=== PATIENT | male | born 2000 | race African-American/Black ===

== ENCOUNTER 2023-02-28 02:15 | Inpatient (IN) | payer SELFPAY ==
[2023-02-28] MEDS ORDERED: Rocuronium Bromide 10 MG/ML (10ML VIAL) ONE (02:22)
[2023-02-28 02:38] LABS: Actual Bicarbonate (HCO3a) 17.9 mEq/L (22-28); Analyzer IN Cardio ER; Base Excess (BEa) -7.9 mEq/L (-2.0 to +3.0); CO2 Tension 37.7 mmHg (35.0-45.0); Calcium, Ionized (arterial) 1.11 mmol/L (1.12-1.30); Carboxyhemoglobin (COHb) 0.5 gm% (0.0-3.0); Hematocrit-ABG 44 % (42.0-52.0); Hemoglobin (Hb) 14.9 g/dL (14.0-18.0); O2 Tension (PaO2), arterial 537.5 mmHg (> 60.0); Potassium - ABG Lab 3.74 mmol/L (3.70-5.30); pH, Arterial 7.294 (7.35-7.45)
[2023-02-28 02:40] LABS: #Monocytes 0.3 thou/uL (0.11-0.59); #Neutrophils 5.4 thou/uL (1.40-6.50); %Basophils 0.4 % (0.0-1.0); %Eosinophils 0.3 % (0.0-10.0); %Lymphocytes 27.3 % (21.0-51.0); %Monocytes 3.9 % (0.0-10.0); Hematocrit 41.2 % (42.0-52.0); Hemoglobin 13.8 g/dL (14.0-18.0); Mean Corpuscular HGB CONC 33.5 g/dL (32.0-36.0); Mean Corpuscular Hemoglobin 29.3 pg (27.0-31.0); Mean Corpuscular Volume 87.5 fl (78.0-98.0); Mean Platelet Volume 9.7 fL (7.4-10.4); Platelet Count 181 10x3/uL (130-400); RBC Distribution Width 12.9 % (11.5-14.5); Red Blood Cell (RBC) Count 4.71 mill/uL (4.70-6.10); White Blood Cell (WBC) Count 7.9 10x3/uL (4.8-10.8)
[2023-02-28 02:46] LABS: Puncture Site LR
[2023-02-28 02:51] LABS: ALV-art Gradient 128.375 mmHg (0-20)
[2023-02-28 03:04] LABS: Acetaminophen Less than 10 mcg/mL (10.0-30.0); Alcohol 221.6 mg/dL (Less than 10); Lipase 29 U/L (8-78); Salicylate Less than 8.0 mg/dL (15.0-30.0)
[2023-02-28 03:06] LABS: Troponin I Less than 0.010 ng/mL (< 0.028)
[2023-02-28 03:08] LABS: ALT (SGPT) 18 U/L (8-55); AST (SGOT) 34 U/L (5-34); Albumin 3.9 g/dL (3.4-4.8); Alkaline Phosphatase 90 U/L (40-110); Anion Gap 16 mmol/L (10-20); BUN (Urea Nitrogen) 16 mg/dL (8.4-25.7); Bilirubin, Total 0.3 mg/dL (0.2-1.2); CK (CPK) 676 U/L (30-200); Calc. Creatinine Clearance 0 mL/min (70-130); Carbon Dioxide 17 mmol/L (23-31); Chloride 112 mmol/L (98-107); Estimated GFR 50; Globulin 2.4 g/dL (2.4-3.5); Glucose 120 mg/dL (83-110); Potassium 3.5 mmol/L (3.5-5.1); Protein, Total 6.3 g/dL (5.8-8.1); Sodium 141 mmol/L (136-145)
[2023-02-28] MEDS ORDERED: fentaNYL 50 mcg/mL 1 mL Vial ONE (03:09)
[2023-02-28 03:15] LABS: Amphetamine Not Detected (NotDetected); Barbiturates Screen Not Detected (NotDetected); Benzodiazepine Screen Not Detected (NotDetected); Cocaine Metabolite Screen Not Detected (NotDetected); Methadone Not Detected (NotDetected); Methamphetamine Not Detected (NotDetected); Opiate Screen Not Detected (NotDetected); Oxycodone Screen Not Detected (NotDetected); Phencyclidine (PCP) Not Detected (NotDetected); THC/Cannabinoid Screen Detected (NotDetected); Tricyclic Screen Not Detected (NotDetected)
[2023-02-28] MEDS ORDERED: LORazepam 2 MG/ML SYR.(CARPUJECT) ONE ×2 (03:27→03:48)
[2023-02-28] MEDS ORDERED: Fentanyl CADD 100 ML IV SCH (03:30)
[2023-02-28] MEDS ORDERED: Lorazepam 1 MG TAB ONE (03:48)
[2023-02-28] MEDS ORDERED: Acetaminophen 650 MG Suppository PR PRN (04:35)
[2023-02-28] MEDS ORDERED: Electrolyte Replacement Protocol 1 EACH IVPB SCH (04:35)
[2023-02-28] MEDS ORDERED: Lorazepam 2 MG/ML VIAL SLOW IVP PRN (04:45)
[2023-02-28] MEDS ORDERED: Propofol BOLUS 1,000 MG/100 ML VIAL IV PRN (04:45)
[2023-02-28] MEDS ORDERED: Ventilator Sedation Protocol 1 EACH FS SCH (04:45)
[2023-02-28] MEDS ORDERED: Fentanyl BOLUS 250 ML IVPB PRN (04:45)
[2023-02-28] MEDS ORDERED: Morphine 2 MG/ML VIAL SLOW IVP PRN (04:45)
[2023-02-28] MEDS ORDERED: Propofol 1,000 MG/100 ML VIAL IV PRN (04:45)
[2023-02-28] MEDS ORDERED: Dextrose 5%-Lactated Ringers 1,000 ML IV SCH (04:45)
[2023-02-28 05:42] VITALS: BMI 24.2
[2023-02-28] MEDS: Lactated Ringer's 1,000 ML IV SCH ×2 (06:32→14:22)
[2023-02-28 07:21] VITALS: BP 119/58
[2023-02-28] MEDS: Potassium Chloride 20 MEQ in Premix Bag 1 BAG IVPB SCH ×2 (07:49→11:56)
[2023-02-28] MEDS ORDERED: Multivitamin W/ Minerals 1 TAB PO SCH (09:00)
[2023-02-28] MEDS ORDERED: Famotidine/PF 20 mg/2ml Vial SLOW IVP SCH (09:00)
[2023-02-28] MEDS ORDERED: Folic Acid 1 MG TAB PO SCH (09:00)
[2023-02-28] MEDS ORDERED: Thiamine 100 MG TAB PO SCH (09:00)
[2023-02-28] MEDS ORDERED: FLU VACC QS2023-24(6MOS UP)/PF 60 MCG/0.5 ML SYRINGE IM ONE (09:00)
[2023-02-28 13:08] VITALS: TEMP 97.9
[2023-02-28 16:26] LABS: Chloride (VBG) 107 mmol/L (98-106); Hematocrit-VBG 44 % (42.0-52.0); Potassium (VBG) 3.76 mmol/L (3.70-5.30); Sodium 139 mmol/L (133-146); pH (venous) 7.375 (7.32-7.43)
[2023-02-28 17:03] LABS: Anion Gap 12 mmol/L (10-20); BUN (Urea Nitrogen) 9 mg/dL (8.9-20.6); CK (CPK) 756 U/L (30-200); Calc. Creatinine Clearance 154 mL/min (70-130); Calcium 8.7 mg/dL (7.8-10.44); Carbon Dioxide 22 mmol/L (22-29); Chloride 109 mmol/L (98-107); Estimated GFR 118; Glucose 102 mg/dL (70-105); Potassium 3.8 mmol/L (3.5-5.1); Sodium 139 mmol/L (136-145)
[2023-02-28] MEDS ORDERED: Mometasone 200 MCG/Formoterol 5 MCG 120 PUFF INHALER INH SCH (18:30)
== END 2023-02-28 19:08 | disposition home or self-care (01) | DRG 208 ==
LOC: EDBD 02:15 → ERS 02:15 → CCU 04:40
PROVIDERS: ADMIT Student in an Organized Health Care Education/Training Program; ATTEND Family Medicine
PROC: 4A133R1 Monitoring of Arterial Saturation, Peripheral, Percutaneous Approach (ICD-10-PCS; principal; 2023-02-28)
PROC: 5A1935Z Respiratory Ventilation, Less than 24 Consecutive Hours (ICD-10-PCS; 2023-02-28)
PROC: 0BH17EZ Insertion of Endotracheal Airway into Trachea, Via Natural or Artificial Opening (ICD-10-PCS; 2023-02-28)
DX: J96.00 Acute respiratory failure, unspecified whether with hypoxia or hypercapnia (principal); G93.41 Metabolic encephalopathy; E87.20 Acidosis, unspecified; F10.129 Alcohol abuse with intoxication, unspecified; R40.2431 Glasgow coma scale score 3-8, in the field [EMT or ambulance]; Z71.41 Alcohol abuse counseling and surveillance of alcoholic
CPT/HCPCS: 31500; 36415; 36416; 51702; 70450; 71045; 72125; 80053; 80306; 80307; 82550; 82805; 83690; 84484; 85025; 93005; 94002; 96365; 96366; 96375; 96376; J1650; J2060; J2250; J3010; J3480; J3490; J7120; S0028